=== PATIENT | female | born 2000 | race Caucasian/White ===

== ENCOUNTER 2018-02-20 10:20 | Emergency (ER) | payer SELFPAY ==
[2018-02-20] MEDS ORDERED: Ibuprofen 200 MG TAB ONE (10:30)
--- NOTE | 2018-02-20 11:18 | RAD ---
TWO VIEWS OF THE RIGHT FOREARM: COMPARISON: None. HISTORY: Right forearm pain after fall while skateboarding. FINDINGS: Two views of the right forearm show no evidence of acute fracture or dislocation. No soft tissue swe lling is seen. No degenerative changes are seen in the elbow or wrist. IMPRESSION: No evidence of acute osseous abnormality. POS: [facility]
== END 2018-02-20 11:40 | disposition home or self-care (01) ==
LOC: ERS 10:20
DX: S39.012A Strain of muscle, fascia and tendon of lower back, initial encounter (principal); T14.8XXA Other injury of unspecified body region, initial encounter; F31.9 Bipolar disorder, unspecified; V00.131A Fall from skateboard, initial encounter; Y93.51 Activity, roller skating (inline) and skateboarding